=== PATIENT | male | born 1990 | race Hispanic/Latino ===

== ENCOUNTER 2022-09-04 14:11 | Emergency (ER) | payer SELFPAY ==
[2022-09-04] MEDS ORDERED: Fluorescein Opthalmic Strip ONE (16:10)
[2022-09-04] MEDS ORDERED: Proparacaine 0.5% Opth 15 ML BOT ONE (16:10)
== END 2022-09-04 17:19 | disposition home or self-care (01) ==
LOC: ERS 14:11
DX: S05.01XA Injury of conjunctiva and corneal abrasion without foreign body, right eye, initial encounter (principal)
CPT/HCPCS: 99283

== ENCOUNTER 2023-07-22 18:06 | Emergency (ER) | payer SELFPAY ==
[2023-07-22] MEDS ORDERED: Lidocaine 1% PF 5 ML VIAL ONE ×2 (18:22→18:27)
[2023-07-22] MEDS ORDERED: Boostrix 0.5 ML (Tdap) VIAL (>/=7 yrs of age) ONE (18:27)
== END 2023-07-22 19:21 | disposition home or self-care (01) ==
LOC: ERS 18:06
DX: S61.300A Unspecified open wound of right index finger with damage to nail, initial encounter (principal); Z23 Encounter for immunization; X58.XXXA Exposure to other specified factors, initial encounter
CPT/HCPCS: 11750; 90471; 90715